=== PATIENT | female | born 1980 | race Caucasian/White ===

== ENCOUNTER 2022-08-28 19:38 | Emergency (ER) | payer BC | END 2022-08-28 22:44 | disposition home or self-care (01) | LOC: JP.ED 19:38 | DX: S90.122A Contusion of left lesser toe(s) without damage to nail, initial encounter (principal); W20.8XXA Other cause of strike by thrown, projected or falling object, initial encounter | CPT/HCPCS: 73630-26-LT; 73630-LT; 99283 ==